=== PATIENT | female | born 1995 | race Caucasian/White ===

== ENCOUNTER 2017-01-17 17:49 | Inpatient (IN) | payer BC ==
[~2017-01-17] VITALS: Ht 162.6 cm; Wt 51.3 kg
--- NOTE | ~2017-01-17 | OP ---
PATIENT NAME: ROBBIE SALAZAR MEDICAL RECORD: [id number] :89 LOCATION:[facility] [id number] ADMISSION DATE:01/18/17 SURGEON: CASTRO MONTEZ DO OPERATION DATE: 01/19/17 PROCEDURE: Colonoscopy with biopsies. INDICATIONS FOR PROCEDURE: Abnormal imaging with thickening of the ileocecal valve and cecum on a CT scan of the abdomen and pelvis. SCOPE: Obviousidea video pediatric colonoscope. MEDICATIONS: Propofol 350 milligrams IV per anesthesia. WITHDRAWAL TIME: 10 minutes. ESTIMATED BLOOD LOSS: Less than 2 milliliters. COMPLICATIONS: None. FINDINGS: Informed consent was given. The patient was made comfortable with the above medication. After reaching an adequate level of sedation by slow IV push, the patient was placed on her left side. A digital rectal examination was performed and was normal. The endoscope was then advanced under direct visualization through the rectum to the terminal ileum. The prep was excellent. The entire colon exhibited some loss of vascular pattern with occasional areas of petechia, but these were very minor findings. Regarding the abnormal CT scan, there was a significantly large area ulcerating the ileocecal valve and measuring approximately 3 x 2 centimeters in size. It was superficial and covered with an exudate. Multiple biopsies were taken. The mucosa was very friable and did bleed easily. The ulceration did involve the very inside of the ileocecal valve, but I did not see any specific extension of the ulceration into the terminal ileum. The terminal ileum did have an atrophic appearance and multiple biopsies were taken of the terminal ileum as well. Upon withdrawal random biopsies were taken throughout the entire colon with a separate bottle taken from the rectum alone with the majority of the loss of vascular pattern and the petechial appearance was located. The scope was withdrawn from the patient. The patient tolerated the procedure well , and there were no complications. IMPRESSIONS: Ulcerated ileocecal valve and extreme distal terminal ileum. Appearances favor Crohn's disease. PLAN/RECOMMENDATIONS: 1. Return to floor for further monitoring. 2. Initiate steroids. 3. If we have and adequate response to steroids over the next day, we will transition to oral steroids route patient therapy and plan treatment of Crohn's while awaiting biopsy results. If this is indeed Crohn's consideration will have to be taken regarding her age and further family planning in selection of the appropriate medication. OPERATIVE REPORT [id number] MARTIN,CASTRO TURNER DO CC: [id number] DICTATION DATE: 01/19/17 1500 LAND MEASURER: BRI 01/20/[address] [facility] [address] [id number]
[~2017-01-17 17:49] MED LIST: FERROUS SULFAT325 MG PO; HYDROCODONE-APA1 TAB PO; IBUPROFEN600 MG PO; PRENATAL COMPLE1 TAB PO
[2017-01-17] MEDS ORDERED: TRI-SPRINTEC1 TAB PO (19:37)
[2017-01-17] MEDS ORDERED: CELEXA10 MG PO (19:38)
[2017-01-17 19:41] VITALS: BP 103/63; BMI 19.4
--- NOTE | 2017-01-17 20:15 | NUR ---
PT RECEIVED LYING IN BED RESTING QUIETLY. ASSESSMENT, ADMISSION HISTORY, AND MED REC COMPLETED PER FLOW SHEET AT THIS TIME. VSS. PT DENIES NEEDS. RATING PAIN 5/10. BED LOW. PHONE AND CALL LIGHT IN REACH. SRX2. WILL CONTINUE TO MONITOR.
--- NOTE | 2017-01-17 21:42 | NUR ---
20G IV TO LT FOREARM X 1 STICK. SALINE LOCK. SECURED. SITED WITHOUT EDEMA OR ERYTHEMA AFTER FLUSH.
--- NOTE | 2017-01-17 22:10 | NUR ---
PT BACK TO ROOM AFTER CT. FAMILY REMAINS AT BEDSIDE. DENIES NEEDS AT THIS TIME. BED LOW. PHONE AND CALL LIGHT IN REACH. SRX2.
[2017-01-17 22:35] LABS: HCG SERUM NEGATIVE (NEGATIVE)
[2017-01-17 22:57] LABS: CREATININE - SERUM 0.5 mg/dL (0.6-1.3)
[2017-01-18] VITALS (15 sets, daily range): BP systolic 81–170; BP diastolic 48–103
--- NOTE | 2017-01-18 00:10 | NUR ---
PT LYING IN BED WATCHING TV AT THIS TIME. VSS. FAMILY REMAINS AT BEDSIDE. DENIES NEEDS. BED LOW. PHONE AND CALL LIGHT IN REACH. SRX2.
--- NOTE | 2017-01-18 01:41 | NUR ---
PT RESTING QUIETLY AT THIS TIME WITH EYES CLOSED. RESPIRATIONS EVEN, NON-LABORED. NO ACUTE DISTRESS NOTED AT THIS TIME. BED LOW. PHONE AND CALL LIGHT IN REACH. SRX2.
--- NOTE | 2017-01-18 03:54 | NUR ---
PT RESTING QUIETLY AT THIS TIME WITH EYES CLOSED. AROUSED EASILY. PT DENIES NEEDS AT THIS TIME. BED LOW. PHONE AND CALL LIGHT IN REACH. SRX2.
--- NOTE | 2017-01-18 07:50 | NUR ---
LYING IN BED SUPINE TALKING ON PHONE TO SON. C/O SOME DISCOMFORT IN ABDOMINAL AREA REFUSED PAIN MEDS. CALL LIGHT IN REACH. WILL CONTINUE TO MONITOR.
--- NOTE | 2017-01-18 10:00 | NUR ---
LYING IN BED SUPINE, PT MOTHER AT BEDSIDE. DENIES ANY NEEDS. CALL LIGHT IN REACH. WILL CONTINUE TO MONITOR
--- NOTE | 2017-01-18 12:00 | NUR ---
LYING IN BED ON RIGHT SIDE EYES CLOSED RESTING QUIETLY. APPROPRIATE RISE AND FALL OF CHEST. CALL LIGHT IN REACH. WILL CONTINUE TO MONITOR.
--- NOTE | 2017-01-18 13:30 | NUR ---
PATIENTS MOTHER ADVISED THAT PT WAS VOMITING UP GOLYTELY AFTER EVERY DRINK. WENT IN TO CK ON PT AND SHE ADVISED THAT SHE COULD NOT DRINK THE GOLYTELY THAT EVERY TIME SHE WOULD DRINK IT SHE WOULD GET SICK. INFORMED HER TO STOP DRINKING IT AND ADMINISTERED ZOFRAN 4MG IV. 1335-CALLED DR. MONTEZ OFFICE AND SPOKE TO AG HU AND SHE ADVISED THAT SHE WOULD GET IN TOUCH WITH DR. MONTEZ AND CALL ME BACK WITH A NEW POC.
--- NOTE | 2017-01-18 14:47 | NUR ---
DR. MONTEZ CALLED AND ADVISED THAT HE PUT IN NEW ORDERS FOR MILK OF MAG AND TO DISCONTINUE THE GOLYTELY. ADVISED PT OF NEW ORDERS. PT VERBALIZED UNDERSTANDING.
--- NOTE | 2017-01-18 16:00 | NUR ---
LYING IN BED ON LEFT SIDE RESTING. DENIES ANY NEEDS. CALL LIGHT IN REACH
--- NOTE | 2017-01-18 18:44 | NUR ---
PT SITTING UP IN BED AND WAS ABLE TO KEEP DOWN ALL 4 DOSES OF MILK OF MAG. DENIES ANY NEEDS AT THIS TIME. WILL CONTINUE TO MONITOR.
--- NOTE | 2017-01-18 19:15 | NUR ---
PM ROUNDS MADE, PT AWAKE, TALKING ON PHONE, INFORMED PT THAT I WILL BE BACK SHORTLY TO DO ASSESSMENT, PT VERBALIZES UNDERSTANDING, DENIES NEEDS AT THIS TIME
--- NOTE | 2017-01-18 20:20 | NUR ---
ASSESSMENT PER FLOW SHEET, VS OBTAINED, IV IN RIGHT WRIST INTACT WITH NO REDNESS OR EDEMA INFUSING VIA PUMP NS AT 100 ML/HR, PT REPORTS FLATUS, WATER DIARRHEA FROM TAKING THE MOM, AND VOIDING BY SELF WITH NO DIFFICULTY, PT C/O LANCE, REFUSES PAIN MED AT THIS TIME, DENIES NEEDS, CONSENTS SIGNED AND WITNESSED
--- NOTE | 2017-01-18 21:22 | NUR ---
PT RESTING WITH EYES CLOSED, RESP QUIET, NO DISTRESS NOTED, LEFT UNDISTURBED AT THIS TIME
--- NOTE | 2017-01-18 22:35 | NUR ---
PT AWAKE, VISITING WITH FRIENDS, DENIES NEEDS AT THIS TIME
--- NOTE | 2017-01-18 23:40 | NUR ---
PT VISITING WITH S/O, VS OBTAINED, C/O SLIGHT LANCE, REFUSES PAIN MED, STATES "IT'S NOT THAT BAD AND I DON'T WANT THAT HAL[place], PT INST ON NPO AFTER MIDNIGHT, PT VERBALIZES UNDERSTANDING
--- NOTE | 2017-01-19 | NUR ---
PT AWAKE, S/O LAYING IN BED WITH PT, ADM ROCEPHIN IVPB PER MD ORDERS, SEE EMAR, PT DENIES NEEDS AT THIS TIME
--- NOTE | 2017-01-19 02:10 | NUR ---
PT RESTING WITH EYES CLOSED, RESP QUIET, NO DISTRESS NOTED, LEFT UNDISTURBED AT THIS TIME
--- NOTE | 2017-01-19 03:45 | NUR ---
PT RESTING WITH EYES CLOSED, RESP QUIET, NO DISTRESS NOTED, LEFT UNDISTURBED AT THIS TIME
[2017-01-19 04:43] VITALS: BP 93/61
--- NOTE | 2017-01-19 04:43 | NUR ---
IV BEEPING, NEW BAG OF NS HUNG IV PER MD ORDERS, SEE EMAR, VS OBTAINED, PT DENIES NEEDS OR PAIN AT THIS TIME
--- NOTE | 2017-01-19 05:42 | NUR ---
PT RESTING WITH EYES CLOSED, AROUSES TO SOFT VERBAL STIMULATION, ADM MOM PO PER MD ORDERS, PT DENIES NEEDS AT THIS TIME
--- NOTE | 2017-01-19 07:00 | NUR ---
SHIFT REPORT TO DAY SHIFT
--- NOTE | 2017-01-19 07:06 | NUR ---
MOM GIVEN PER ORDERS. SEE EMAR.
[2017-01-19 07:45] VITALS: BP 98/60
--- NOTE | 2017-01-19 07:45 | NUR ---
LYING IN BED SUPINE HEAD COVERED WITH BLANKET. C/O OF MIGRAINE AND NEEDING SOMETHING FOR IT. DR. GÓMEZ ADVISED 600MG MOTRIN TO BE ADMINISTERED. WILL ADMINISTER SOON ORDERS ARE PLACED. CALL LIGHT IN REACH. WILL CONTINUE TO MONITOR.
--- NOTE | 2017-01-19 10:37 | NUR ---
LYING IN BED TALKING TO SON ON PHONE SMILING. PT STATES "MY HEAD FEELS 100 TIMES BETTER". WILL CONTINUE TO MONITOR. CALL LIGHT IN REACH
--- NOTE | 2017-01-19 12:23 | NUR ---
LYING IN BED SUPINE EYES CLOSED RESTING QUIETLY. FAMILY AT BEDSIDE. CALL LIGHT IN REACH. WILL CONTINUE TO MONITOR.
[2017-01-19 13:31] VITALS: Ht 162.6 cm; Wt 51.3 kg
--- NOTE | 2017-01-19 14:15 | NUR ---
TRANSPORTED OFF FLOOR BY GI LAB FOR PROCEDURE VIA BED.
--- NOTE | 2017-01-19 15:06 | NUR ---
STOOL STUDIES OBTAINED AND COLLECTD AND TAKEN TO LAB.
--- NOTE | 2017-01-19 16:00 | NUR ---
RECIEVED PT BACK ON FLOOR VIA BED ACCOMPANIED BY SYLVIA HU AND LAUREN SCHAEFER.
[2017-01-19 16:30] VITALS: BP 98/42
--- NOTE | 2017-01-19 18:26 | NUR ---
SITTING UP IN BED VISITING WITH FAMILY. DENIES ANY NEEDS AT THIS TIME. DENIES DISCOMFORT OR PAIN. CALL LIGHT IN REACH.
--- NOTE | 2017-01-19 19:22 | NUR ---
PM ROUNDS MADE, PT TALKING ON CELL PHONE, INFORMED PT THAT I WILL RETURN SHORTLY TO DO ASSESSMENT, PT VERBALIZES UNDERSTANDING, DENIES NEEDS OR PAIN AT THIS TIME
[2017-01-19 20:00] VITALS: BP 100/70
--- NOTE | 2017-01-19 20:00 | NUR ---
ASSESSMENT PER FLOW SHEET, VS OBTAINED, IV IN RIGHT WRIST INTACT WITH NO REDNESS OR EDEMA INFUSING VIA PUMP NS AT 100 ML/HR, PT REPORTS FLATUS, BM TODAY, AND VOIDING BY SELF WITH NO DIFFICULTY, PT DENIES NEEDS OR PAIN AT THIS TIME, FRIEND AT BEDSIDE
--- NOTE | 2017-01-19 21:30 | NUR ---
PT VISITING WITH FRIENDS, DENIES NEEDS OR PAIN AT THIS TIME
--- NOTE | 2017-01-19 22:27 | NUR ---
PT AWAKE, LOOKING AT PHONE, DENIES NEEDS OR PAIN
[2017-01-19 23:17] VITALS: BP 95/59
--- NOTE | 2017-01-19 23:17 | NUR ---
PT AWAKE, ADM SOLUMEDROL SIVP AND HUNG ROCEPHIN IVPB PER MD ORDERS, SEE EMAR, VS OBTAINED, PT DENIES NEEDS OR PAIN AT THIS TIME
--- NOTE | 2017-01-20 00:30 | NUR ---
PT RESTING WITH EYES CLOSED, RESP QUIET, NO DISTRESS NOTED, LEFT UNDISTURBED AT THIS TIME
--- NOTE | 2017-01-20 02:09 | NUR ---
PT RESTING WITH EYES CLOSED, RESP QUIET, NO DISTRESS NOTED, LEFT UNDISTURBED AT THIS TIME
--- NOTE | 2017-01-20 02:29 | NUR ---
NEW BAG OF NS HUNG IV INFUSING VIA PUMP AT 100 ML/HR
--- NOTE | 2017-01-20 04:30 | NUR ---
PT RESTING WITH EYES CLOSED, RESP QUIET, NO DISTRESS NOTED, LEFT UNDISTURBED AT THIS TIME
--- NOTE | 2017-01-20 06:10 | NUR ---
PT RESTING WITH EYES CLOSED, RESP QUIET, NO DISTRESS NOTED, LEFT UNDISTURBED AT THIS TIME
--- NOTE | 2017-01-20 07:00 | NUR ---
SHIFT REPORT TO MARYCARMEN MICHAEL RN
[2017-01-20 07:44] VITALS: BP 85/46
--- NOTE | 2017-01-20 07:45 | NUR ---
PT IS RECEIVED THIS AM LYING IN BED. SHE OFFERS NO COMPLAINTS. SHE STATES THAT SHE IS NOT HAVING ANY PAIN. H GEN- AWAKE AND ALERT. LUNGS- CLEAR. HEART- RRR. ABD-SOFT , NT. BS+. EXT- NO EDEMA. WARM AND DRY. BED IS LOW. SIDE RAILS UP X 2 AND CALL LIGHT IN REACH. IV PATENT R WRIST.
[2017-01-20 08:20] LABS: PH - STOOL 9.5 (7.0-7.5)
--- NOTE | 2017-01-20 08:46 | NUR ---
PT IS LYING IN BED. OFFERS NO COMPLAINTS. SOLUMEDROL GIVEN 60 MG IV.
[2017-01-20 08:56] LABS: BASOPHILS 0.1 % (0-2); EOSINOPHILS 0 % (0-7); HEMATOCRIT 38.4 % (36.0-48.0); HEMOGLOBIN 13.9 g/dL (12-16); LYMPHOCYTES 13.5 % (15-50); MCH 30.8 pg (26.0-34.0); MCHC 36.2 g/dL (31.0-37.0); MCV 85.1 fL (80.0-100.0); MEAN PLATELET VOLUME 9.7 fL (7.4-10.4); MONOCYTES 1.6 % (2-11); NEUTROPHILS 82.8 % (40-80); PLATELET COUNT 241 10x3/uL (130-400); RBC 4.51 10x6/uL (4.00-5.40); RDW 11.9 % (11.5-14.5); WBC 7.3 10x3/uL (4.8-10.8)
[2017-01-20 09:15] LABS: ALBUMIN 2.8 g/dL (3.4-5.0); ALKALINE PHOSPHATASE 70 U/L (46-116); ALT (SGPT) 17 U/L (10-68); BILIRUBIN - TOTAL 0.52 mg/dL (0.2-1.3); CALC OSMOLALITY 277 mosm/kg (275-300); CALCIUM 8.7 mg/dL (8.5-10.1); CARBON DIOXIDE 24.6 mmol/L (21.0-32.0); CHLORIDE - SERUM 106 mmol/L (98-107); CREATININE - SERUM 0.4 mg/dL (0.6-1.3); GLUCOSE 143 mg/dL (74-106); PROTEIN - SERUM 6.8 g/dL (6.4-8.2); SODIUM 139 mmol/L (136-145); UREA NITROGEN 6 mg/dL (7-18); eGFR NON AFRICAN AMERICAN > 90 mL/min (90-120)
--- NOTE | 2017-01-20 11:01 | NUR ---
PT IS UP TO SHOWER. MOTHER AT BEDSIDE.
--- NOTE | 2017-01-20 12:46 | NUR ---
DR MONTEZ IS HERE TO SEE PT.
--- NOTE | 2017-01-20 12:59 | NUR ---
DR MONTEZ WOULD LIKE FOR PT TO FU IN 1 MONTH WITH HIS CLINIC. WILL MAKE APPT.
[2017-01-20] MEDS ORDERED: AZULFIDINE500 MG PO (13:02)
--- NOTE | 2017-01-20 13:19 | NUR ---
PT IS DISCHARGED HOME. HANDOUTS GIVEN AND FU APPT. PRESCRIPTIONS E SCRIBED TO PHARMACY. PT REFUSED WHEELCHAIR SO SHE AMBULATED TO CAR WITH HER MOM
--- NOTE | 2017-01-20 13:54 | NUR ---
SALINE LOCK D'CD. TIP INTACT.
== END 2017-01-20 13:58 | disposition home or self-care (01) | DRG 386 ==
LOC: D.WS 17:49 → OBSVTIME 17:49 → D.WS 17:49
PROVIDERS: Internal Medicine Gastroenterology; ADMIT Family Medicine
PROC: 0DBB8ZX Excision of Ileum, Via Natural or Artificial Opening Endoscopic, Diagnostic (ICD-10-PCS; 2017-01-19)
PROC: 0DBC8ZX Excision of Ileocecal Valve, Via Natural or Artificial Opening Endoscopic, Diagnostic (ICD-10-PCS; principal; 2017-01-19 14:30)
DX: K50.00 Crohn's disease of small intestine without complications (principal); N39.0 Urinary tract infection, site not specified

== ENCOUNTER 2020-03-13 05:22 | Inpatient (IN) | payer MEDICAID ==
[2017-01-19 13:31] VITALS: BMI 19.4
[~2020-03-13 05:22] MED LIST changes: +AZULFIDINE500 MG PO; +CELEXA10 MG PO; +TRI-SPRINTEC1 TAB PO
--- NOTE | 2020-03-16 10:33 | MORECARE ---
CASE MANAGEMENT DISCHARGE SUMMARY PATIENT: ROBBIE RODRIGUEZ UNIT: [id number] ADM DATE: 03/13/20 AGE: 25 : [birth year] SEX: F ROOM/BED: D.[facility]7 AUTHOR: JORDON ANGELES PHYSICIAN: REFERRING PHYSICIAN: DAFNE FORD MD DATE OF SERVICE: 03/16/20 Discharge Plan Patient Name: ROBBIE RODRIGUEZ Facility: [facility]:[place] : 1995 Planned Disposition: Home Anticipated Discharge Date: 03/14/20 Discharge Date: 03/13/2020 Expected LOS: 1 Initial Reviewer: [email or web address] Initial Review Date: 03/13/2020 Generated: 03/16/20 11:32 am Patient Name: ROBBIE RODRIGUEZ Page [id number] at 1033 All edits/amendments must be made on the electronic document DICTATION DATE: 03/16/20 1032 BEVERAGE SERVER: BRI 03/16/20 1032 RPT#: [id number] DC DATE:03/13/20 STATUS: DIS IN [facility] [address] [place] [address] END OF REPORT
== END 2020-03-13 09:00 | disposition home or self-care (01) | DRG 833 ==
LOC: D.LD 05:22
PROVIDERS: ADMIT Obstetrics & Gynecology; ATTEND Obstetrics & Gynecology
DX: O32.1XX0 Maternal care for breech presentation, not applicable or unspecified (principal); Z3A.39 39 weeks gestation of pregnancy

== ENCOUNTER 2020-03-18 05:25 | Inpatient (IN) | payer MEDICAID ==
[~2020-03-18] VITALS: Ht 162.6 cm; Wt 72.1 kg
[2020-03-18] VITALS (7 sets, daily range): BP systolic 114–127; BP diastolic 62–78; Ht 162.6 cm; Wt 72.1 kg
[2020-03-18 07:39] LABS: BILIRUBIN NEGATIVE (NEGATIVE); KETONE NEGATIVE (NEGATIVE); NITRITE POSITIVE (NEGATIVE); UROBILINOGEN NORMAL mg/dL (< 2); WHITE CELLS - URINE 0-5 HPF (0-4)
[2020-03-18 07:40] LABS: BACTERIA MANY /HPF (NONE SEEN)
[2020-03-18 07:57] LABS: BASOPHILS 0.1 % (0-2); EOSINOPHILS 0.5 % (0-7); HEMATOCRIT 30.1 % (36.0-48.0); HEMOGLOBIN 10.1 g/dL (12-16); IMMATURE GRANULOCYTES 0.3 % (0-5); LYMPHOCYTES 17.1 % (15-50); MCH 26.8 pg (26.0-34.0); MCHC 33.6 g/dL (31.0-37.0); MCV 79.8 fL (80.0-100.0); MEAN PLATELET VOLUME 9.6 fL (7.4-10.4); MONOCYTES 7.1 % (2-11); NEUTROPHILS 74.9 % (40-80); PLATELET COUNT 153 10x3/uL (130-400); RBC 3.77 10x6/uL (4.00-5.40); RDW 13.3 % (11.5-14.5); WBC 8.7 10x3/uL (4.8-10.8)
--- NOTE | 2020-03-18 10:07 | NUR ---
PALPATED FUNDUS FIRM AND MIDLINE
--- NOTE | 2020-03-18 10:14 | NUR ---
500C OF CLEAR YELLOW URINE IN BAG ON ADMIT
--- NOTE | 2020-03-18 11:15 | NUR ---
ABDOMEN CONTINUES TO PALPATE SOFT. FUNDUS FIRM, U/1, SMALL RUBRA LOCHIA, NO CLOTS EXPELLED. CLEAN GOWN AND CLEAN LINENS DUE TO BETADINE STAINS BEING ON THEM UPON ARRIVAL FROM RECOVERY ROOM. PT REPOSITIONED TO RIGHT TILT, WITH PILLOW UNDER BACK FOR SUPPORT AND COMFORT. SRUP X2, CALL LIGHT AND PHONE WITHIN REACH.
--- NOTE | 2020-03-18 12:00 | NUR ---
FUNDUS FIRM, U/1, SMALL RUBRA LOCHIA, NO CLOTS. PT DENIES N/V, DENIES SOB, DIZZINESS, OR DIFFICULTY BREATHING. SRUP X2, CALL LIGHT AND PHONE WITHIN REACH.
--- NOTE | 2020-03-18 14:16 | NUR ---
RECEIVED PT TO LABOR AND DELIVERY BY BED, POST SECTION BY DR. FORD, REPORT RECEIVED FROM MAYTE SETH IN RECOVERY. ABDOMEN PALPATES SOFT, FUNDUS FIRM, U/1, SMALL RUBRA LOCHIA, ONE SMALL DIME SIZED CLOT, PERICARE DONE WITH WARM WET WASHCLOTHS, PERITOWEL/CHUX CHANGED. RAMSEY CATH DRAINING YELLOW URINE WITH 600 MLS NOTED IN RAMSEY BAG. SCD'S ON AND ATTACHED. PT DENIES PAIN, DUE TO SPINAL ANESTHESIA. PT DENIES SOB, NAUSEA, DIZZINESS OR DIFFICULTY BREATHING. SEE EMAR FOR ALL MEDS ADM BY THIS RN. SRUP X2, CALL LIGHT AND PHONE WITHN REACH.
--- NOTE | 2020-03-18 14:30 | NUR ---
TO ROOM, FUNDUS FIRM, U/1, SMALL RUBRA LOCHIA, NO CLOTS EXPELLED. PERICARE DONE WITH WARM WET WASHCLOTHS, PERITOWEL/CHUX CHANGED. PERIPADS CHANGED. PT REPOSITIONED TO LEFT LATERAL SIDE, PILLOWS PLACED FOR COMFORT AND SUPPORT. PT THEN USING INCENTIVE SPIROMETER WELL, COUGHING AND DEEP BREATHING EXERCISES DONE. RAMSEY CATH EMPTIED WITH 400 MLS EMPTIED. PT SERVED LARGE GLASS OF ICE WATER SERVED. PT REPORTS HER DILAUDID IS WORKING BUT SHE HAS RESERVATIONS ABOUT BECOMING DEPENDENT ON THE DILAUDID, MEDICATION AND AIRCRAFT ENGINE SPECIALIST BUTTON EXPLAINED TO PT AGAIN, ALONG WITH TO SIG OTHER. PT DENIES ALL OTHER NEEDS. SR UP X2, CL/PHONE WITHIN REACH.
--- NOTE | 2020-03-18 16:44 | NUR ---
SIG OTHER TO DESK, STATES "SHE IS COMPLAINING OF ITCHING ON HER NOSE". TO ROOM, PT IS CONSTANTLY RUBBING NOSE AND EYES, NO SWELLING OR HIVES NOTED TO FACE/MOUTH. NO RASHES, OR HIVES NOTED TO BODY. PT IS HOLDING IN SKIN TO SKIN POSITION ON HER CHEST, INFANT COVERED IN MOM'S BLANKET. INFORMED PT WILL CALL MD TO INFORM HIM OF PT'S C/O ITCHING. TELEPHONE CALL MADE TO DR. FORD WITH REPORT GIVEN TO MD OF PT'S C/O ITCHING TO NOSE/EYES. TELEPHONE ORDER RECEIVED TO ADMINISTER BENADRYL 25 MG PO NOW, AND MAY REPEAT IN 4-6 HRS PRN ITCHING. TELEPHONE ORDER ALSO RECEIVED PT MAY ADVANCE DIET TO REGULAR FOR SUPPER IF SHE DESIRES.
--- NOTE | 2020-03-18 16:51 | NUR ---
BENADRYL 25 MG ONE PO GIVEN FOR C/O ITCHING, SEE EMAR FOR ALL MEDS ADM BY THIS RN. SR UP X2, CALL LIGHT AND PHONE WITHIN REACH.
--- NOTE | 2020-03-18 17:30 | NUR ---
DIETARY SERVES REGULAR SUPPER TRAY. PT DENIES NEEDS AT THIS TIME. SRUP X2, CL/PHONE WITHIN REACH.
[2020-03-18 18:51] LABS: BASOPHILS 0 % (0-2); EOSINOPHILS 0 % (0-7); HEMATOCRIT 28.6 % (36.0-48.0); HEMOGLOBIN 9.5 g/dL (12-16); IMMATURE GRANULOCYTES 0.2 % (0-5); MCH 26.9 pg (26.0-34.0); MCHC 33.2 g/dL (31.0-37.0); MEAN PLATELET VOLUME 9.8 fL (7.4-10.4); NEUTROPHILS 84.8 % (40-80); PLATELET COUNT 127 10x3/uL (130-400); RBC 3.53 10x6/uL (4.00-5.40); RDW 13.7 % (11.5-14.5); WBC 11.2 10x3/uL (4.8-10.8)
--- NOTE | 2020-03-18 19:00 | NUR ---
REPORT GIVEN BY MAYTE WICK
--- NOTE | 2020-03-18 19:30 | NUR ---
PT ASSESSMENT COMPLETED. PT IS IN BED RESTING QUIETLY. HER HEART SOUNDS ARE REGULAR AND STRONG, LUNGS SOUND CLEAR, NO BOWEL SOUNDS HEARD. PT HAS AN IV IN THE RIGHT WRIST, 18 GUAGE, INFUSING AT 125 ML/HR. SHE HAS NS WITH PIT INFUSING. THIS IS MAKING THE PT CRAMP BADLY. SHE STATES SHE HURTS EVEN WITH THE DILAUDID FOOD ORDER EXPEDITER PUMP. HER INCISION HAS THE WHITE PRESSURE DRESSING IN PLACE WITH NO DRAINAGE NOTED. SCD'S ARE IN PLACE. PT USES HER IS FAITHFULLY AND SHE REACHES 1700 WHEN SHE IS USING IT. SHE IS ENCOURAGED TO COUGH MORE STRONGLY AND DO MORE DEEP BREATHING. PADS WERE CHANGED. LOCHIS IS MOD AT THIS TIME. NO CLOTS. PT DOES NOT REALLY C/O OF ITCHING NOW. HER ICE PACK WAS REFILLED. PT CALL LIGHT IS CLOSE AT HAND. AT BEDSIDE. BEDSIDE.
--- NOTE | 2020-03-18 20:15 | NUR ---
RAMSEY CARE DONE FOR THIS PT. PT IS DRAINING CLEAR YELLOW URINE.
--- NOTE | 2020-03-18 20:30 | NUR ---
BABY TAKEN TO PARENTS. A FINGER PRINT WAS TAKEN OF THE MOM FOR THE NURSERY NURSE. PT HAS NO C/O AT THIS TIME.
--- NOTE | 2020-03-18 22:00 | NUR ---
PT IS RESTING QUIETLY AT THIS TIME WITH NO C/O. SIGNING OFF ON THIS PT. MAYTE JACOBS WILL TAKE OVER CARE. REPORT GIVEN TO PT.
--- NOTE | 2020-03-18 22:16 | NUR ---
RN TO PT BEDSIDE FOR ROUNDING, PT REASSIGNMENT, FUNDUS FIRM, MIDLINE, 1 BELOW, SCANT RUBRA LOCHIA, NO CLOTS SEEN, RAMSEY CATHETER IN PLACE DRAINING TO GRAVITY, PT STATES PAIN IS 5-6/10 TO ABDOMEN, SCD'S ON, BED IN LOWEST POSITION, SIDE RAILS UPX2, CALL LIGHT IN REACH.
--- NOTE | 2020-03-18 23:38 | NUR ---
RN TO PT BEDSIDE, IV FLUIDS D/C'D, RAMSEY REMOVED, 1100ML IN URINE BAG, PT ASSISTED TO AMBULATORY POSITION, PT AMBULATED TO BATHROOM WITH RN ASSISTANCE, PT VOIDED 250ML IN URINE HAT, PT PROVDED WITH BRIEFS, PADS, AND NEW GOWN AT THIS TIME. PT'S BED LINEN CHANGED AT THIS TIME. PT AMBULATED TO BED WITH STANDBY ASSISTANCE, GAIT STEADY. PT PROVIDED WITH NEW ICE PACK, PT DENIES ANY OTHER NEEDS, BED IN LOWEST POSITION, SIDE RAILS UPX2, CALL LIGHT IN REACH, NON-SKID SOCKS ON, SCD'S ON, FOB AT BEDSIDE.
[2020-03-19 02:47] VITALS: BP 109/68
--- NOTE | 2020-03-19 02:51 | NUR ---
RN TO PT BEDSIDE AT THIS TIME FOR ROUNDING, FUNDUS FIRM, MIDLINE, AT UMBILICUS, SCANT RUBRA LOCHIA NOTED ON PERIPAD, NO CLOTS SEEN, VSS. PT STATES PAIN IS 2-3/10 ON PAIN SCALE TO ABDOMEN. BED IN LOWEST POSITION, SIDE RAILS UPX2, CALL LIGHT IN REACH.
[2020-03-19 06:30] LABS: BASOPHILS 0.1 % (0-2); EOSINOPHILS 0.3 % (0-7); HEMATOCRIT 28.1 % (36.0-48.0); HEMOGLOBIN 9.5 g/dL (12-16); IMMATURE GRANULOCYTES 0.3 % (0-5); LYMPHOCYTES 10.6 % (15-50); MCH 27.2 pg (26.0-34.0); MCHC 33.8 g/dL (31.0-37.0); MCV 80.5 fL (80.0-100.0); MEAN PLATELET VOLUME 9.7 fL (7.4-10.4); MONOCYTES 8.2 % (2-11); NEUTROPHILS 80.5 % (40-80); PLATELET COUNT 134 10x3/uL (130-400); RBC 3.49 10x6/uL (4.00-5.40); RDW 13.9 % (11.5-14.5); WBC 11.1 10x3/uL (4.8-10.8)
[2020-03-19 07:18] LABS: RAPID PLASMA REAGIN Non Reactive (Non Reactive)
--- NOTE | 2020-03-19 07:30 | NUR ---
AM ASSESSMENT DONE, SEE FLOW SHEET. PT DENIES HEAVY BLEEDING OR PASSING CLOTS. DIETARY SERVES REGULAR BREAKFAST TRAY, PT DENIES ALL NEEDS AT THIS TIME. SR UP X2, CALL LIGHT AND PHONE WITHIN REACH.
--- NOTE | 2020-03-19 08:00 | NUR ---
DR. FORD IN ROOM SPEAKING WITH PT.
--- NOTE | 2020-03-19 08:50 | NUR ---
PT C/O ABDOMINAL PAIN OF "6" ON 0-10 PAIN SCALE. NORCO 5/325 2 TABS AND MOTRIN 600 MG GIVEN PO ORDERED. PT INSTRUCTED ON MEDS. VERBALIZES UNDERSTANDING.
--- NOTE | 2020-03-19 10:41 | NUR ---
PT SITTING UP IN BED. HOLDS WITH MUCH WARMTH SHOWN. STATES PAIN NOW "4" ON 0-10 PAIN SCALE. SO AT BEDSIDE.
--- NOTE | 2020-03-19 13:02 | NUR ---
PT C/O ABDOMINAL PAIN OF "5" ON 0-10 PAIN SCALE. NORCO 5/325 2 TABS GIVEN PO ORDERED.
--- NOTE | 2020-03-19 13:05 | NUR ---
VSS. ABDOMINAL INCISION OPEN TO AIR. NO REDNESS, SWELLING OR DRAINAGE NOTED. PT DENIES PASSING CLOTS OR HEAVY BLEEDING.
[2020-03-19 13:06] VITALS: BP 109/59
--- NOTE | 2020-03-19 17:30 | NUR ---
PAIN MED GIVEN SCANNED TO EMAR FOR PAIN THAT SHE RATES AT 5/10. PT COMPLAINS OF FEELING LIKE SHE NEEDS TO "BURP" BUT STARLA, ORDERS CHECKED. WILL CONTACT MD PULMONARY NURSE PRACTITIONER FOR ORDERS.
--- NOTE | 2020-03-19 17:43 | NUR ---
DR MCCANN GIVEN REPORT OF PT COMPLAINT, ORDERS RECIEVED FOR SIMITHICONE PO.
--- NOTE | 2020-03-19 19:00 | NUR ---
REPORT GIVEN BY NURSING STAFF.
[2020-03-19 20:00] VITALS: BP 108/72; BP 138/92
--- NOTE | 2020-03-19 20:00 | NUR ---
PT ASSESSMENT COMPLETED. HEART SOUNDS REGULAR, LUNGS CLEAR, BOWEL SOUNDS HEARD. SHE IS ON A REGULAR DIET. SHE IS UP AD FLEX IN HER ROOM AND DOING WELL. FUNDUS FIRM, BLEEDING SMALL. SHE HAS SL IN HER RIGHT WRIST. THE SITE LOOKS GOOD WITH NO REDNESS OR PUFFINESS. NO PRBLEMS WITH URINATION. NO BM. CALL LIGHT IS CLOSE AT HAND.
--- NOTE | 2020-03-19 21:00 | NUR ---
FEEDING BABY. NO NEW C/O. AT BEDSIDE. NO PROBLEMS OR C/O AT THIS TIME.
--- NOTE | 2020-03-19 22:10 | NUR ---
NO C/0 NO NEEDS BABY IN ROOM.
--- NOTE | 2020-03-19 22:13 | NUR ---
PT RECEIVED NORCO 5 X 2 TABS FOR PAIN. SHE RATES HER PAIN A 6. SHE IS UP AMBULATING IN HER ROOM. HERE AND BABY IN ROOM.
--- NOTE | 2020-03-20 02:37 | NUR ---
PT C/P PAIN. WHEN I GOT TO HER ROOM WITH HER PAIN PILLS SHE STATES SHE IS NAUSEATED. I GAVE PT ZOFRAN 4 MG IV PER ORDER. WHEN I HAD JUST INJECTED HER SHE STATES ITS NOT WORKING. I TOLD HER IT WOULD TAKE A LITTLE BIT TO CIRCULATE THROUGH HER BODY. SHE IS LAYING IN BED. I ASKED IF SHE WOULD LIKE A COOL CLOTH AND SHE SAID NO. HER PAIN PILL WILL BE GIVEN WHEN AND IF THE NAUSEA RESOLVES OR IS MUCH BETTER.
--- NOTE | 2020-03-20 02:54 | NUR ---
NORCO 5 MG X 2 GIVEN PO. PT STATES NAUSEA IS BETTER. PT ALSO ASKED FOR A MOTRIN WHICH WAS GIVEN PO
--- NOTE | 2020-03-20 06:49 | NUR ---
PT RESTING QUIETLY.
--- NOTE | 2020-03-20 07:00 | NUR ---
REPORT RECEIVED FROM Wong DALY RN.
[2020-03-20 08:30] VITALS: BP 89/45
--- NOTE | 2020-03-20 08:30 | NUR ---
ROUNDS MADE. ASSESSMENT COMPLETE. SEE FLOWSHEET. PT SITTING UP IN BED. MALE VISITOR AT BEDSIDE. NO C/O PAIN; NO NEEDS OR CONCERNS VOICED AT THIS TIME.
--- NOTE | 2020-03-20 09:54 | NUR ---
IV D/C'D. CATHETER INTACT. PRESSURE APPLIED; NO BLEEDING AFTER 2 MINUTES. BANDAGE APPLIED. PT UP TO SHOWER.
[2020-03-20] MEDS ORDERED: HYDROCODON-ACE1 EA10 PO (11:40)
[2020-03-20] MEDS ORDERED: IBUPROFEN600 MG PO (11:40)
--- NOTE | 2020-03-20 13:00 | NUR ---
PT REQUESTS PAIN MED. MED GIVEN. REVIEWD D/C INSTRUCTIONS WITH PT. STATES UNDERSTANDING. PRESCRIPTIONS GIVEN. FOLLOW UP APPOINTMENT GIVEN FOR Monday03/24/20 @ 0800. NO QUESTIONS VOICED.
--- NOTE | 2020-03-20 13:45 | NUR ---
PT DISCHARGED HOME VIA WHEELCHAIR TO PRIVATE VEHICLE.
--- NOTE | 2020-03-20 17:11 | MORECARE ---
CASE MANAGEMENT DISCHARGE SUMMARY PATIENT: ROBBIE RODRIGUEZ UNIT: [id number] ADM DATE: 03/18/20 AGE: 25 : [birth year] SEX: F ROOM/BED: D.1223 AUTHOR: JORDON ANGELES PHYSICIAN: REFERRING PHYSICIAN: DAFNE FORD MD DATE OF SERVICE: 03/20/20 Discharge Plan Patient Name: ROBBIE RODRIGUEZ Facility: [facility]:[place] : 1995 Planned Disposition: Home Anticipated Discharge Date: 03/20/20 Discharge Date: 03/20/2020 Expected LOS: 2 Initial Reviewer: [email or web address] Initial Review Date: 03/18/2020 Generated: 03/20/20 6:10 pm Patient Name: ROBBIE RODRIGUEZ Page 26713 at 1711 All edits/amendments must be made on the electronic document DICTATION DATE: 03/20/201709 BOAT HOP: BRI 03/20/201709 RPT#: [id number] DC DATE:03/20/20 STATUS: DIS IN [facility] [address] [place] [address] END OF REPORT
== END 2020-03-20 13:59 | disposition home or self-care (01) | DRG 788 ==
LOC: D.LD 05:25 → D.WS 03-19 17:29
PROVIDERS: ADMIT Obstetrics & Gynecology; ATTEND Obstetrics & Gynecology
PROC: 10D00Z1 Extraction of Products of Conception, Low, Open Approach (ICD-10-PCS; principal; 2020-03-18 08:15)
DX: O32.1XX0 Maternal care for breech presentation, not applicable or unspecified (principal); Z3A.39 39 weeks gestation of pregnancy; Z37.0 Single live birth